=== PATIENT | male | born 1990 | race Asian ===

== ENCOUNTER 2019-05-06 23:35 | Inpatient (IN) | payer SELFPAY ==
[~2019-05-06] VITALS: Ht 167.6 cm; Wt 72.6 kg
[2019-05-06 23:45] VITALS: BP 140/60
--- NOTE | 2019-05-06 23:47 | NUR ---
TO LOBBY A/W BED AMBULATORY
--- NOTE | 2019-05-07 00:31 | NUR ---
AMBULATED TO BED 01.
[2019-05-07] MEDS ORDERED: NACL 0.9% 1,000 ML IV ONE ×2 (00:40→04:10)
[2019-05-07] MEDS ORDERED: ONDANSETRON 4 MG/2 ML VIAL IVP ONE (00:40)
[2019-05-07] MEDS ORDERED: KETOROLAC 30 MG/ML VIAL IVP ONE (00:40)
--- NOTE | 2019-05-07 00:40 | NUR ---
PT BIB FRIEND C/O ABD CRAMPING AND VOMITING X5 SINCE 2199. CONSTANT CRAMPING 10/10 PAIN. PT APPEARS DIAPHORETIC AND PALE. DENIES DIARRHEA. PT STATES HE HAS A FEVER PRIOR TO VISIT, AFEBRILE AT THIS TIME. ABD SOFT, ROUND, TENDER TO PALP. RR EVEN AND UNLABORED. PT LAYING IN BED IN COMFORTABLE POSITION. FRIEND AT BEDSIDE. VSS. MEDHX : DENIES ALLERGIES: DENIES
--- NOTE | 2019-05-07 01:52 | NUR ---
PT STATES 10/10 PAIN W/ NO RELIEF AFTER TORADOL. DR. HERRMANN MADE AWARE. WILL CONTINUE TO MONITOR.
[2019-05-07] MEDS ORDERED: MORPHINE SULFATE 4 MG/ML SYR IVP ONE (01:55)
--- NOTE | 2019-05-07 02:18 | NUR ---
LAB AT BEDSIDE.
--- NOTE | 2019-05-07 02:31 | NUR ---
PT TO CT VIA WHEELCHAIR.
[2019-05-07 02:38] LABS: BASOPHILS # (AUTO) 0.1 K/uL (0.00-0.22); BASOPHILS % (AUTO) 0.6 % (0.0-2.0); EOSINOPHILS % (AUTO) 0.1 % (0.0-4.0); HEMATOCRIT 42.9 % (36-52); HEMOGLOBIN 14.7 g/dL (12.0-18.0); LYMPHOCYTES # (AUTO) 0.8 K/uL (2.0-11.5); MEAN CORPUSCULAR HEMOGLOBIN 31 pg (27-31); MEAN CORPUSCULAR HGB CONC 34 g/dL (33-37); MEAN CORPUSCULAR VOLUME 90.2 fL (80-94); MONOCYTES # (AUTO) 0.4 K/uL (0.8-1.0); MONOCYTES % (AUTO) 2.7 % (1.7-9.3); NEUTROPHILS # (AUTO) 13.5 K/uL (1.8-7.7); NEUTROPHILS % (AUTO) 90.9 % (42.2-75.2); PLATELET COUNT (AUTO) 230 K/uL (140-450); RED BLOOD CELL COUNT(AUTO) 4.75 MIL/uL (4.20-6.10); RED CELL DISTRIBUTION WIDTH 12.7 % (11.6-13.7); WHITE BLOOD COUNT (AUTO) 14.8 K/uL (4.8-10.8)
--- NOTE | 2019-05-07 02:43 | NUR ---
PT RETURNED FROM CT VIA WHEELCHAIR
[2019-05-07 02:55] LABS: ALBUMIN 4.4 g/dL (3.4-5.0); ANION GAP 19.7 (8-16); CARBON DIOXIDE 22.4 mmol/L (21-32); CREATININE 1.2 mg/dL (0.7-1.3); LYMPHOCYTES % (AUTO) 5.7 % (20.5-51.1); POTASSIUM 3.1 mmol/L (3.5-5.1); TOTAL BILIRUBIN 0.6 mg/dL (0.0-1.0)
--- NOTE | 2019-05-07 03:40 | NUR ---
PT RESTING IN BED, C/O 8/10 PAIN AT THIS TIME. PT POSITIONED IN COMFORTABLE POSITION. BED LOCKED AND IN LOW POSITION. VSS. WILL CONTINUE TO MONITOR.
[2019-05-07] MEDS ORDERED: METOCLOPRAMIDE 10 MG/2 ML INJ VIAL IVP ONE (04:10)
--- NOTE | 2019-05-07 05:06 | NUR ---
PT DENIES PAIN AT THIS TIME. NO VOMITING, DENIES NAUSEA. RESTING WITH EYES CLOSED, VSS. WILL CONTINUE TO MONITOR.
--- NOTE | 2019-05-07 05:14 | NUR ---
PT AMBULATED TO RESTROOM.
--- NOTE | 2019-05-07 05:21 | NUR ---
PT REPORTS INCREASING ABD PAIN AT THIS TIME, NO VOMITING. DR HERRMANN MADE AWARE.
[2019-05-07] MEDS ORDERED: NACL 0.9% 1,000 ML IV SCH (06:23)
[2019-05-07] MEDS ORDERED: ONDANSETRON 4 MG/2 ML VIAL IVP PRN (06:25)
[2019-05-07] MEDS ORDERED: ACETAMINOPHEN 325 MG TAB PO PRN (06:25)
--- NOTE | 2019-05-07 06:56 | NUR ---
Patient will be admitted to care of DR RANGEL. Admited to [facility] . Will go to [id number]. Belongings list completed. Report to ALTA VELAZQUEZ.
[2019-05-07 07:05] VITALS: BP 98/60
--- NOTE | 2019-05-07 07:05 | NUR ---
RECEIVED REPORT FROM SENIOR CORPORATE RECRUITER NURSE. PT AAOX4, PT C/O LEVEL 5/10 ABD PAIN, WILL REPORT TO PHYSICIAN. RESPIRATIONS EVEN AND UNLABORED ON RA. IV ON RT AC 20 GA RUNNING IVF PER ORDER. ABD SOFT, ACTIVE BS. SKIN IS INTACT, SKIN WARM TO TOUCH. SAFETY MEASURES IN PLACE, CALL LIGHT WITHIN REACH. REVIEWED POC WITH PT, PT VERBALIZED UNDERSTANDING.
[2019-05-07 07:21] LABS: FREE T4 (FREE THYROXINE) 1.16 ng/dL (0.76-1.46); MAGNESIUM 1.6 mg/dL (1.8-2.4); PHOSPHORUS 2.2 mg/dL (2.5-4.9); THYROID STIMULATING HORMONE 0.98 uIU/mL (0.34-3.74)
[2019-05-07 07:45] LABS: PROTHROMBIN TIME 11.1 secs (10.8-13.4)
[2019-05-07] MEDS ORDERED: KETOROLAC 30 MG/ML VIAL IVP PRN (08:05)
[2019-05-07] MEDS: DOCUSATE SODIUM 100 MG GELCAP PO SCH ×2 (08:23→20:30)
--- NOTE | 2019-05-07 08:23 | NUR ---
ADMINISTERED TORADOL PER ORDER FOR LEVEL 9/10 PAIN TO ABDOMEN. WILL REASSESS WITHIN 1 HOUR.
--- NOTE | 2019-05-07 08:24 | NUR ---
PATIENT HAS BEEN SCREENED AND CATEGORIZED MODERATE NUTRITION RISK. PATIENT WILL BE SEEN WITHIN 3-5 DAYS OF ADMISSION. 05/09/19 05/11/[address]
[2019-05-07] MEDS: DEXT 5% /NACL 0.9% 1,000 ML IV SCH ×2 (08:27→18:05)
--- NOTE | 2019-05-07 08:27 | NUR ---
ADMINISTERED MEDICATIONS PER ORDER, PT IS AWARE OF INDICATIONS AND POTENTIAL SIDE EFFECTS.
[2019-05-07] MEDS ORDERED: MAG SULF 2000 MG/WATER PREMIX 50 ML IV SCH (10:00)
[2019-05-07] MEDS ORDERED: POTASSIUM CHLORIDE 10 MEQ TABER PO SCH (10:00)
--- NOTE | 2019-05-07 10:14 | NUR ---
ADMINISTERED TORADOL PER ORDER FOR LEVEL 9/10 TO ABDOMINAL PAIN. PT IS RESTLESS IN BED. WILL CONTINUE TO MONITOR.
[2019-05-07] MEDS ORDERED: KETOROLAC 30 MG/ML VIAL IVP SCH (10:15)
--- NOTE | 2019-05-07 11:14 | NUR ---
Beading Machine Operator Note: [facility] Patient: Abdi Zelaya : 1990 Age/Sex: 28/M Unit#: [id number] Room/Bed: 126/B User: Wild EWING Date: 05/07/19 11:11 Type: CM: Discharge Planning Name: HORACIO Rice Relationship: FRIEND Pre-Admission Living Arrangements: Lives with Other Other: RENTS ROOM Prior ADL Independent Current Home Health Name/Tel: N/A Current / Name/Tel: N/A Current Hospice Name/Tel: N/A Current Dialysis Name/Tel: N/A Healthcare Decision Maker: Patient Advance Directive No - REFUSED Physician Orders for Life Sustaining Treatment Form No Patient/Family Have Educational Needs No Information Taught: Advance Directive Person Taught: Patient Teaching Tools: Verbal Factors Affecting Learning: None Participation Level: Refused Evaluation: Verbalizes Understanding Needs Additional Education: No Discipline: Case Mgt/Social Svcs Tentative Discharge Plan/Destination: No Needs Identified Will require assistance post discharge: No Referred to Structural Steel Detailer: No Tentative Discharge Plan Summary: Patient is a 28 year old male admitted for viral gastroenteritis. Patient denies medical history. Patient was admitted from home. SOPHIE verified demographics with patient. Patient states that he is independent with all ADLs and denies mental health hx or substance abuse hx. SW provided education on advanced directive and patient refused. Patient's tentative plan after discharge is to return home. No further needs identified. Signature: TI Rowan Date: May 07, 2019 Time: 11:13
--- NOTE | 2019-05-07 12:30 | NUR ---
PT RESTING IN BED, LYING IN SUPINE POSITION. PT HAS NO SIGNS OF DISTRESS AT THIS TIME.
--- NOTE | 2019-05-07 12:52 | NUR ---
DC [age] YRS OLD MALE ADMITTED FROM HOME WITH A DX OF VIRAL GASTROENTERITIS. PT A/O X4 NO MEDICAL HX . CT OF ABD /PELVIS ORDERED IVF FOR HYDRATION REPLACE POTASSIUM AND MAG KEEP PT NPO FOR NOW AND MONITOR D/C PLAN TOGO HOME WHEN STABLE CM TO FOLLOW
[2019-05-07 13:53] LABS: APPEARANCE,URINE CLEAR (CLEAR); BILIRUBIN,URINE NEGATIVE (NEGATIVE); BLOOD, URINE NEGATIVE (NEGATIVE); COLOR,URINE YELLOW (YELLOW); LEUKOCYTE ESTERASE ,URINE NEGATIVE (NEGATIVE); NITRITE, URINE NEGATIVE (NEGATIVE); UGLUCOSE TRACE (NEGATIVE)
[2019-05-07 14:02] LABS: BARBITURATE, URINE NEG. ng/ml (NEG <=200); BENZODIAZEPINE, URINE NEG. ng/mL (NEG <=200); CANNABINOID, URINE POS. ng/mL (NEG <=50); COCAINE, URINE NEG. ng/mL (NEG <=300); OPIATE, URINE NEG. ng/mL (NEG <=2000); PHENCYCLIDINE SCREEN,URINE NEG. ng/mL (NEG <=25)
[2019-05-07 14:15] LABS: HYALINE CASTS, URINE 0-10 /LPF (None Seen); RBC,URINE 0 /HPF (0-5); WBC,URINE 0-5 /HPF (0-5)
--- NOTE | 2019-05-07 15:05 | NUR ---
PT IS SLEEPING COMFORTABLY IN BED. RESPIRATIONS EVEN AND UNLABORED ON RA.
[2019-05-07 16:00] VITALS: BP 118/61
--- NOTE | 2019-05-07 17:00 | NUR ---
PT SAYS "NO" WHEN ASKED IF HE HAS PAIN AT THIS TIME. WILL CONTINUE TO MONITOR.
--- NOTE | 2019-05-07 19:20 | NUR ---
ENDORSED PT TO FOOD HANDLER NURSE. PT HAS NO SIGNS OF DISTRESS AT THIS TIME.
--- NOTE | 2019-05-07 19:20 | NUR ---
RECIEVED PT. AAOX4 .NID , NO C/O OF ANY PAIN AT THIS TIME , IV SITE INTACT AND PATENT , NPO EXCEPTS MEDS - RE INSTRUCTED , PLAN OF CARE DISCUSSED AND VERBALIZED UNDERSTANDING . WILL CONT. TO MONITOR.
--- NOTE | 2019-05-07 21:30 | NUR ---
MADE ROUNDS , I FOUND [facility]ADY LYING ON THE BED WITH THE PT. - I INFORMING THEM ABOUT HOSPITAL POLICY - NO OVER NIGHT STAY FOR VISITOR UNLESS NEEDED . BUT PT WANTS HIS GIRL VISITOR TO STAY WITH HIM OVER NIGHT IF NOT HE WANTS TO GO HOME TONIGHT - WILL INFORM JOSÉ MANUEL. ABOUT IT.
--- NOTE | 2019-05-07 21:35 | NUR ---
JOSÉ MANUEL TALKING THE PT . ABOUT THE PROS AND CONS OF BEING AMA - BUT PT. STILL WANTS TO GO HOME AMA.WILL SIGN THE AMA WAIVER FORM.
--- NOTE | 2019-05-07 21:40 | NUR ---
PT SIGNED AMA WAIVER - IV NEEDLE REMOVED - NEEDLE INTACT . MINIMAL BLEEDING.
--- NOTE | 2019-05-07 21:50 | NUR ---
PT. LEFT , AMBULATORY , ACCOMPANIED BY HIS GIRL VISITOR.
== END 2019-05-07 21:58 | disposition left against medical advice (07) | DRG 392 ==
LOC: MED 23:35 → MMU 05-07 06:30
PROVIDERS: ADMIT General Practice; ATTEND General Practice
DX: A08.4 Viral intestinal infection, unspecified (principal); K56.609 Unspecified intestinal obstruction, unspecified as to partial versus complete obstruction; E87.6 Hypokalemia; E83.42 Hypomagnesemia; E83.39 Other disorders of phosphorus metabolism; Z53.29 Procedure and treatment not carried out because of patient's decision for other reasons
CPT/HCPCS: 36415; 71045; 80053; 80305; 81001; 82150; 83036; 83690; 83735; 83880; 84100; 84439; 84443; 84484; 85025; 85610; 85730; 87081; 87804; 93005; 96361; 96374; 96375; 99285; J1885; J2270; J2405; J2765; J3475; J7030; J7042; Q0092